=== PATIENT | male | born 1990 | race Caucasian/White ===

== ENCOUNTER 2022-04-03 11:55 | Emergency (ER) | payer OTHER ==
[2022-04-03 12:11] VITALS: BP 126/70; PULSE 85; RESP 18; TEMP 99; BMI 23.1
== END 2022-04-03 13:20 | disposition home or self-care (01) ==
LOC: FER 11:55
DX: R20.2 Paresthesia of skin (principal)
CPT/HCPCS: 70450-TC; 99284-25

== ENCOUNTER 2022-11-19 18:20 | Emergency (ER) | payer OTHER ==
[2022-11-19] MEDS ORDERED: morphine CARPU-JECT 2 MG/1 ML DISP.SYRIN IVPUSH ONE (19:25)
[2022-11-19] MEDS ORDERED: SODIUM CHLORIDE 1,000 ML IV ONE (19:25)
[2022-11-19 19:40] VITALS: BP 114/70; PULSE 75; RESP 16; TEMP 98.2; BMI 23.2
[2022-11-19] MEDS ORDERED: morphine SULFATE 4 MG/ML VIAL ONE (19:44)
[2022-11-19 20:09] LABS: HEMATOCRIT 48.3 % (35.4-49); HEMOGLOBIN 16.9 G/dL (11.7-16.9); MCH 32.6 pg (25.7-33.7); MCHC 34.9 g/dl (32.0-35.9); MEAN CELL VOLUME 93.3 fl (80-96); MEAN PLT VOLUME 8.5 fl (7.5-11.1); PLATELET COUNT 167.6 10^3/uL (134-434); RBC 5.18 10^6/uL (4.00-5.60); RDW 13.2 % (11.9-15.9); WHITE BLOOD COUNT 7.6 10^3/uL (4.0-10.8)
[2022-11-19 20:23] LABS: INR 1.11 (0.83-1.09); PROTHROMBIN TIME (PATIENT) 12.9 SEC (9.7-13.0)
[2022-11-19 20:32] LABS: ALBUMIN 4.9 g/dl (3.4-5.0); BILIRUBIN,TOTAL 1.3 mg/dl (0.2-1); BLOOD UREA NITROGEN 11.2 mg/dl (7-18); CALCIUM 9.4 mg/dl (8.5-10.1); CREATININE 0.9 mg/dl (0.6-1.3); SGPT/ALT 5.1 U/L (7-52); TOT PROT 7.6 g/dl (6.4-8.2)
== END 2022-11-19 21:54 | disposition home or self-care (01) ==
LOC: FER 18:20
PROC: 3E0337Z Introduction of Electrolytic and Water Balance Substance into Peripheral Vein, Percutaneous Approach (ICD-10-PCS; principal; 2022-11-19)
DX: R10.31 Right lower quadrant pain (principal); R63.0 Anorexia
CPT/HCPCS: 36415; 74177-TC; 80053; 81003; 85027; 85610; 87086; 99285-25; Q9967